=== PATIENT | male | born 1955 | race African-American/Black ===

== ENCOUNTER 2021-10-25 16:06 | Inpatient (IN) | payer MEDICARE, OTHER ==
[~2021-10-25] VITALS: Ht 167.6 cm; Wt 44.6 kg
--- NOTE | 2021-10-25 00:06 | NUR ---
RN ADMITTING NOTE PATIENT TRANSFERRED TO 306-1 MS, PATIENT ABLE TO MAKE NEEDS KNOWN, A/O X 3. PATIENT COMPLAINING OF ABDOMINAL PAIN, NO NAUSEA AT THIS TIME. PATIENT STABLE ON RA. PATIENT HAS UROSTOMY PRESENT STOMA PINK NO NECROSIS, DRAINING YELLOW SLIGHTLY CLOUDY URINE. PATIENT NPO STATUS, OK WITH ICE CHIPS. PATIENT HAS RAC 18 G, PATENT AND INTACT. SKIN ISSUES DOCUMENTED AND PHOTOS TAKEN. BELONGINGS INVENTORIED. PATIENT STATES THAT HE IS NOT ABLE TO AMBULATE D/T ABDOMINAL PAIN BUT USUALLY WALKS INDEPENDENTLY AT HOME. SAFETY MEASURES IN PLACE: BED LOCKED AND IN LOWEST POSITION, CALL LIGHT WITHIN REACH, SIDE RAILS UP. WILL MONITOR PATIENT CLOSELY. Addendum: 10/26/21 at 0520 by YASMIN RAZA RN WRONG TIME DOCUMENTED
--- NOTE | 2021-10-25 16:11 | NUR ---
BIB [facility]78 FROM HOME,C/O ABDOMINAL PAIN 06/26 SINCE 1000 THIS MORNING. IN ROOM AIR AND DENIES SOB. RESPIRATION REGULAR AND UNLABORED. DENIES NAUSEA/VOMITING. WILL CONTINUE TO MONITOR THE PATIENT.
--- NOTE | 2021-10-25 16:12 | NUR ---
SUPRAPUBIC STOMA WITH OSTOMY BAG NOTED; PATENT, INTACT, DRAINING YELLOW URINE.
[2021-10-25] MEDS ORDERED: MORPHINE SULFATE INJ 4 MG/ML DISP.SYRIN ONE (16:45)
[2021-10-25] MEDS ORDERED: ONDANSETRON HCL/PF 4 MG/2 ML VIAL ONE ×2 (16:45→18:44)
--- NOTE | 2021-10-25 16:57 | NUR ---
PT TAKEN TO CT VIA STEPHANY
[2021-10-25] MEDS ORDERED: IV NS 0.9% 1,000 ML BAG IV ONE (17:00)
[2021-10-25] MEDS ORDERED: MORPHINE SULFATE INJ 2 MG/ML DISP.SYRIN IV ONE (17:00)
[2021-10-25] MEDS ORDERED: ONDANSETRON HCL/PF 4 MG/2 ML VIAL IVP ONE (17:00)
--- NOTE | 2021-10-25 17:06 | NUR ---
THE PATIENT IS BACK FROM CT
[2021-10-25 17:12] LABS: HEMOGLOBIN 14.1 g/dL (13.5-17.5)
[2021-10-25 17:25] LABS: CALCIUM, SERUM 9.2 mg/dL (8.5-10.1); CREATININE 1.5 mg/dL (0.6-1.3); POTASSIUM 5.2 mmol/L (3.5-5.1)
[2021-10-25 17:30] LABS: ALBUMIN 3.6 g/dL (3.4-5.0); BILIRUBIN,DIRECT 0.1 mg/dL (0.0-0.2); BILIRUBIN,TOTAL 0.3 mg/dL (0.2-1.0)
[2021-10-25 17:31] LABS: BASOPHILS # (AUTO) 0.1 K/uL (0.0-0.2); BASOPHILS % (AUTO) 0.4 % (0.0-2.0); EOSINOPHILS % (AUTO) 0.2 % (0.0-6.0); HEMATOCRIT 44 % (39-51); LYMPHOCYTES # (AUTO) 0.5 K/uL (0.8-4.8); LYMPHOCYTES % (AUTO) 3.2 % (20.0-44.0); MEAN CORPUSCULAR HGB CONC 32 g/dl (31.0-36.0); MEAN CORPUSCULAR VOLUME 99 fL (80-96); MONOCYTES # (AUTO) 0.3 K/uL (0.1-1.30); MONOCYTES % (AUTO) 1.7 % (2.0-12.0); NEUTROPHILS # (AUTO) 16.3 K/uL (1.8-8.9); NEUTROPHILS % (AUTO) 94.5 % (43.0-81.0); PLATELET COUNT (AUTO) 438 K/uL (150-450); WHITE BLOOD COUNT (AUTO) 17.2 K/uL (4.3-11.0)
--- NOTE | 2021-10-25 17:39 | NUR ---
URINE COLLECTED AND SENT TO LAB
[2021-10-25 18:01] LABS: BILIRUBIN,URINE Negative (NEGATIVE); COLOR,URINE YELLOW (YELLOW); LEUKOCYTE ESTERASE ,URINE Large (NEGATIVE); NITRITE, URINE Negative (NEGATIVE); PROTEIN,URINE Negative (NEGATIVE); UGLUCOSE Negative (NEGATIVE); UROBILINOGEN,URINE 0.2 EU/dL (0.2)
[2021-10-25 18:03] LABS: RBC,URINE NONE SEEN /HPF (0-2)
[2021-10-25 18:04] LABS: BACTERIA,URINE 3+ /HPF (None Seen); SQUAMOUS EPITHELIAL CELL,UR Few /HPF (None Seen); WBC,URINE 51-80 /HPF (0-3)
[2021-10-25] MEDS ORDERED: CEFTRIAXONE 1GM BAG (ER ONLY) 1 GM/50 ML PIGGYBACK IV ONE (18:30)
[2021-10-25] MEDS ORDERED: CEFTRIAXONE 1GM BAG (ER ONLY) 50 ML IV ONE (18:44)
[2021-10-25] MEDS ORDERED: FAMOTIDINE/PF INJ 20 MG/2 ML VIAL IV ONE ×2 (18:44→19:00)
[2021-10-25] MEDS ORDERED: MAG HYDROX/AL HYDROX/SIMETH 30 ML UDC PO ONE (19:00)
[2021-10-25] MEDS ORDERED: LIDOCAINE VISCOUS 2% UD 15 ML UDC MM ONE (19:00)
[2021-10-25] MEDS ORDERED: ONDANSETRON HCL/PF - ER 4 MG/2 ML VIAL IV ONE (19:00)
[2021-10-25] MEDS ORDERED: IV NS 0.9% 500 ML BAG IV ONE (20:00)
[2021-10-25] MEDS ORDERED: METRONIDAZOLE 500MG/ NS 100ML 100 ML IV ONE (20:00)
--- NOTE | 2021-10-25 20:21 | NUR ---
COVID ANTIGEN COLLECTED AND SENT O LAB
[2021-10-25] MEDS ORDERED: MAGNESIUM HYDROXIDE 30 ML UDC PO PRN (21:30)
[2021-10-25] MEDS ORDERED: IV NS 0.9% 1,000 ML IV PRN (21:30)
[2021-10-25] MEDS ORDERED: MAG HYDROX/AL HYDROX/SIMETH 30 ML UDC PO PRN (21:30)
[2021-10-25] MEDS ORDERED: ZOLPIDEM TARTRATE 5 MG TABLET PO PRN (21:30)
[2021-10-25] MEDS ORDERED: ACETAMINOPHEN 325 MG TABLET PO PRN (21:30)
[2021-10-25] MEDS ORDERED: Z GUARD REMEDY 2 OZ OINT TP PRN (21:30)
[2021-10-25] MEDS ORDERED: ONDANSETRON HCL/PF 4 MG/2 ML VIAL IVP PRN (21:30)
[2021-10-25] MEDS ORDERED: GABA-532 PO (23:40)
[2021-10-25] MEDS ORDERED: HYDR-4303 PO (23:40)
[2021-10-25] MEDS ORDERED: ALBU2.5V38 IH (23:50)
[2021-10-25] MEDS ORDERED: CILO100T PO (23:50)
[2021-10-25] MEDS ORDERED: OMEP40CA21 PO (23:50)
[2021-10-25] MEDS ORDERED: METO-357 PO (23:50)
[2021-10-25] MEDS ORDERED: LOSA50TA39 PO (23:50)
[2021-10-26] VITALS (28 sets, daily range): BP systolic 76–119; BP diastolic 48–73
--- NOTE | 2021-10-26 00:06 | NUR ---
PT TRANSFERRED TO 3W 306 VIA ACLS PROTOCOL. ALL BELONGINGS WITH PT. NOTIFIED LOUISE DAUGHTER OF TRANSFER
--- NOTE | 2021-10-26 00:07 | NUR ---
RN ADMITTING NOTE PATIENT TRANSFERRED TO 306-1 MS, PATIENT ABLE TO MAKE NEEDS KNOWN, A/O X 3. PATIENT COMPLAINING OF ABDOMINAL PAIN, NO NAUSEA AT THIS TIME. PATIENT STABLE ON RA. PATIENT HAS UROSTOMY PRESENT STOMA PINK NO NECROSIS, DRAINING YELLOW SLIGHTLY CLOUDY URINE. PATIENT NPO STATUS, OK WITH ICE CHIPS. PATIENT HAS RAC 18 G, PATENT AND INTACT. SKIN ISSUES DOCUMENTED AND PHOTOS TAKEN. BELONGINGS INVENTORIED. PATIENT STATES THAT HE IS NOT ABLE TO AMBULATE D/T ABDOMINAL PAIN BUT USUALLY WALKS INDEPENDENTLY AT HOME. SAFETY MEASURES IN PLACE: BED LOCKED AND IN LOWEST POSITION, CALL LIGHT WITHIN REACH, SIDE RAILS UP. WILL MONITOR PATIENT CLOSELY.
[2021-10-26] MEDS: MORPHINE SULFATE INJ 2 MG/ML DISP.SYRIN IV PRN ×3 (00:40→11:13)
--- NOTE | 2021-10-26 00:40 | NUR ---
RN NOTE PATIENT GIVEN MORPHINE FOR ABDOMINAL PAIN, WILL CONTINUE TO MANAGE AND ASSESS PAIN
[2021-10-26 06:08] LABS: ALBUMIN 2.5 g/dL (3.4-5.0); BILIRUBIN,TOTAL 0.3 mg/dL (0.2-1.0); MAGNESIUM 1.7 mg/dL (1.8-2.4); PHOSPHORUS 6.4 mg/dL (2.5-4.9); TOTAL PROTEIN, SERUM 5.7 g/dL (6.4-8.2)
[2021-10-26 06:22] LABS: POTASSIUM 6.7 mmol/L (3.5-5.1)
[2021-10-26 06:41] LABS: BASOPHILS % (AUTO) 0.1 % (0.0-2.0); HEMATOCRIT 40 % (39-51); HEMOGLOBIN 12.9 g/dL (13.5-17.5); LYMPHOCYTES # (AUTO) 0.8 K/uL (0.8-4.8); LYMPHOCYTES % (AUTO) 3.5 % (20.0-44.0); MEAN CORPUSCULAR HGB CONC 32 g/dl (31.0-36.0); MEAN CORPUSCULAR VOLUME 100 fL (80-96); MONOCYTES # (AUTO) 1.1 K/uL (0.1-1.30); NEUTROPHILS # (AUTO) 19.7 K/uL (1.8-8.9); NEUTROPHILS % (AUTO) 91.4 % (43.0-81.0); PLATELET COUNT (AUTO) 326 K/uL (150-450); RED BLOOD CELL COUNT(AUTO) 3.98 MIL/uL (4.5-6.0); WHITE BLOOD COUNT (AUTO) 21.5 K/uL (4.3-11.0)
--- NOTE | 2021-10-26 06:45 | NUR ---
RN NOTE LAB REPORTED CRITICAL LAB OF POTASSIUM 6.7, SALVADOR STUDY MANAGER ORDERED KAYEXALATE 30 GM ONCE.
[2021-10-26] MEDS ORDERED: SODIUM POLYSTYRENE SULFONATE 15 G/60 ML BOTTLE PO ONE (07:00)
--- NOTE | 2021-10-26 07:12 | NUR ---
RN CLOSING NOTE PATIENT WAS JUST GIVEN MORPHINE FOR PAIN. PATIENT TOLERATES ROOM AIR, NO NAUSEA. ALL NEEDS MET AND ATTENDED. ALL ORDERS CARRIED OUT. WAITING FOR PHARMACY TO BRING UP KAYEXALATE. WILL ENDORSE PATIENT TO DAY SHIFT NURSE.
[2021-10-26] MEDS: PANTOPRAZOLE 40 MG VIAL IV SCH (09:34)
--- NOTE | 2021-10-26 09:52 | NUR ---
WOUND CARE CONSULT: PT PRESENTS WITH DRY WOUNDS TO LEFT FOOT, PRESENT ON ADMISSION. PT STATES CANNOT FEEL HIS LEFT FOOT. DR ETIENNE NOTIFIED OF DPM CONSULT REQUEST. RECOMMENDATIONS MADE FOR SKIN PROTECTION. DISCUSSED WITH NURSING STAFF. IN AGREEMENT WITH PLAN OF CARE. PT IS VERY THIN AND BONY.
[2021-10-26] MEDS ORDERED: Z GUARD REMEDY 2 OZ OINT TP PRN (10:00)
[2021-10-26] MEDS ORDERED: INSULIN REGULAR, HUMAN 100 UNIT/ML 10 ML VIAL IV ONE (12:30)
[2021-10-26] MEDS ORDERED: DEXTROSE 50%-WATER 50 ML DISP.SYRIN IVP ONE (12:30)
[2021-10-26] MEDS ORDERED: Calcium Gluconate 1GM/10ML 4.65 MEQ in IV D5W 50 ML IV ONE (13:00)
[2021-10-26] MEDS ORDERED: IV NS 0.9% 1,000 ML IV PRN (13:56)
[2021-10-26] MEDS ORDERED: NOREPINEPHRINE 8 MG in IV NS 0.9% 242 ML IV PRN (16:30)
[2021-10-26] MEDS ORDERED: SODIUM BICARBONATE SYR 50 MEQ/50 ML DISP.SYRIN IV ONE (16:30)
--- NOTE | 2021-10-26 16:35 | NUR ---
code blue team at bedside, code canceled, pt is responsive and answers simple questions, v/s taken and recorded.
--- NOTE | 2021-10-26 16:35 | NUR ---
Responded to CODE BLUE on rm. 313. Upon my arrival, patient was on the floor with vomit next to his head. ER md , Dr. Lion arrived to respond. He was awake and alert. Lethargic but answers simple questions appropriately. Pulses intact. Patient reportedly had an episode of vomiting and fell from the bed onto the floor. His initial oxygen saturation was in the 70s. His oropharynx was suctioned by ER MD. With C-spine immobilized, patient was transferred onto a backboard and then back onto the bed. He was then propped up. His oxygen saturation improved to around 94%. SBp improved to 110's. Transferred to ICU 257 on acls protocol. Stat CT head, neck and lumbar spine ordered. Dr. Beard made aware by 3W extension service specialist in charge.
--- NOTE | 2021-10-26 17:05 | NUR ---
RN NOTE Patient was found by assigned surveillance camera technician lying on the floor in response to bed alarm and called code blue. bleeding was noted on pulled out iv site on rac. patient was non responsive,weak pulse and breathing noted at initial assessment, but was responsive to mild pain stimulation on chest and was able to verbalize "he is ok". code blue was switched to rapid response. MD ordered CT scan lumbar, cervical, spine, head. Report given to CROSSBAND LAYER.
--- NOTE | 2021-10-26 17:09 | NUR ---
RN NOTES PT RECEIVED FROM 3W, A/Ox2, PT ABLE TO VERBALIZE NEEDS , ON NONREBREATHER MASK AT 15L , O2 SAT WNL, ST HR IN 130'S , SBP IN LOW 90'S , R UPPER ARM IV G 22 INSERTED , PT IS NPO AT THIS TIME, SR UP x3, CALL LIGHT WITHIN EASY REACH, BED LOCKED AND IN LOWEST POSITION, CONTINUE TO MONITOR .
[2021-10-26] MEDS ORDERED: PHENYLEPHRINE 50 MG in IV NS 0.9% 245 ML IV PRN (18:00)
[2021-10-26] MEDS: Sodium Bicarbonate 150 MEQ in IV D5W 1,000 ML IV SCH (18:00)
[2021-10-26] MEDS: CEFTRIAXONE 1 G in IV D5W 50 ML IV SCH (19:11)
--- NOTE | 2021-10-26 19:26 | NUR ---
RN NOTE SEE RAPID RESPONSE INTERVENTIONS FOR RAPID RESPONSE NOTES/DETAILS. Addendum: 10/26/21 at 1930 by WARNER MCKEON RN PATIENT WAS TRANSFERRED TO ICU FOR CLOSE CONTINUOUS MONITORING. GAVE REPORT TO FINAL INSPECTOR PAPER.
--- NOTE | 2021-10-26 20:00 | NUR ---
ICU NOTES Received patient awake alert oriented x3 and verbally responsive.ST 120's-130's per tele monitoring. VS stable.With O2 100% 15L NRB Mask saturation 100%.No acute respiratory distress noted.NPO with IVF D5W1L+Na HCO3 @ 150 ml/he infusing well.Urostomy tube to gravity drainage.Denies pain or any discomfort.Turned and repositioned to comfort.Continue monitoring.
[2021-10-26] MEDS: PHENYLEPHRINE 50 MG in IV NS 0.9% 245 ML IV PRN (21:31)
--- NOTE | 2021-10-26 21:31 | NUR ---
ICU NOTES Patient hypotensive 78/51 and remains tachy 127 Sean Synephrine gtt initiated per protocol and will tirate accordingly.PICC Line RN at bedside.NAD noted.
--- NOTE | 2021-10-26 21:45 | NUR ---
ICU NOTES PICC LINE inserted to EPIFANIO flushed with good blood return.Per Rory,PICC LINE RN OK to use.
[2021-10-26 23:43] LABS: CREATININE 4.1 mg/dL (0.6-1.3); POTASSIUM 5.2 mmol/L (3.5-5.1)
[2021-10-27] VITALS (98 sets, daily range): BP systolic 50–145; BP diastolic 38–116
[2021-10-27] MEDS: Sodium Bicarbonate 150 MEQ in IV D5W 1,000 ML IV SCH ×4 (01:50→23:21)
[2021-10-27] MEDS: MORPHINE SULFATE INJ 2 MG/ML DISP.SYRIN IV PRN (02:22)
[2021-10-27 05:04] LABS: HEMATOCRIT 27 % (39-51); HEMOGLOBIN 9.3 g/dL (13.5-17.5); LYMPHOCYTES # (AUTO) 0.4 K/uL (0.8-4.8); LYMPHOCYTES % (AUTO) 4.3 % (20.0-44.0); MEAN CORPUSCULAR HGB CONC 34 g/dl (31.0-36.0); MEAN CORPUSCULAR VOLUME 98 fL (80-96); MONOCYTES # (AUTO) 0.3 K/uL (0.1-1.30); NEUTROPHILS # (AUTO) 7.9 K/uL (1.8-8.9); NEUTROPHILS % (AUTO) 91.7 % (43.0-81.0); PLATELET COUNT (AUTO) 204 K/uL (150-450); RED BLOOD CELL COUNT(AUTO) 2.79 MIL/uL (4.5-6.0); WHITE BLOOD COUNT (AUTO) 8.7 K/uL (4.3-11.0)
--- NOTE | 2021-10-27 06:13 | NUR ---
ICU NOTES Patient urine output is only 50 ml in 11 hrs from 7pm -0600 am. Bladder scan done reading 156 ml.Patient has H/O Bladder CA with Urostomy.Remains Tachycardic 130's. EKG done reading ST 138.Notified Hawa Wright NP with order to continue IVF with Na Bicarb and Sean Synephrine gtt infusing at 1 mcg.Patient awake no complaints presented.Kept comfortable.
[2021-10-27 06:15] LABS: CALCIUM, SERUM 6.6 mg/dL (8.5-10.1); CREATININE 4.5 mg/dL (0.6-1.3); PHOSPHORUS 7.4 mg/dL (2.5-4.9); POTASSIUM 5.2 mmol/L (3.5-5.1)
--- NOTE | 2021-10-27 07:30 | NUR ---
RN NOTES PT FOUND SUPINE SLEEPING DISPLAYING NO S/S OF DISTRESS, FLACC = 0 AND BREATHING IS EVEN AND UNLABORED ON 15 L O2 NRB. R UA PICC PATIENT AND INTACT. UROSTOMY, COLLECTION BAG INTACT WITH SHERIDAN CATH BAG BELOW PATIENT DRAINING BY GRAVITY. VSS, RN WILL MONITOR AND TREAT THROUGHOUT SHIFT. SAFETY MEASURES IN PLACE, BED LOCKED AND IN LOWEST POSITION, SIDE RAILS UPX2, CALL LIGHT WITHIN REACH, BED ALARM ARMED.
[2021-10-27] MEDS: PANTOPRAZOLE 40 MG VIAL IV SCH (09:06)
[2021-10-27 09:07] LABS: BAND % (MANUAL) 28 % (0.0-5.0); LYMPHOCYTES % (MANUAL) 7 % (16-48); METAMYELOCYTES % 1 % (0-0); MONOCYTES % (MANUAL) 5 % (0-11.0); MYELOCYTES % 2 % (0-0); NEUTROPHILS % (MANUAL) 57 (42-76)
[2021-10-27] MEDS: PHENYLEPHRINE 50 MG in IV NS 0.9% 245 ML IV PRN (12:42)
--- NOTE | 2021-10-27 19:18 | NUR ---
RN NOTES PT FOUND SEMI FOWLERS DISPLAYING NO S/S OF DISTRESS, FLACC = 0 AND BREATHING IS EVEN AND UNLABORED ON 15 L O2 NRB. R UA PICC PATIENT AND INTACT. UROSTOMY, COLLECTION BAG INTACT WITH SHERIDAN CATH BAG BELOW PATIENT DRAINING BY GRAVITY. NO URINE OUTPUT, UROLOGIST NOTIFIED. SBAR AND REPORT GIVEN TO OUTSIDE PRODUCTION INSPECTOR RN. SAFETY MEASURES IN PLACE, BED LOCKED AND IN LOWEST POSITION, SIDE RAILS UPX2, CALL LIGHT WITHIN REACH, BED ALARM ARMED. PT ENDORSED IN STABLE CONDITION FOR GALINA. ALL QUESTIONS ANSWERED.
[2021-10-27] MEDS: CEFTRIAXONE 1 G in IV D5W 50 ML IV SCH (19:39)
--- NOTE | 2021-10-27 20:00 | NUR ---
ICU NOTES Received patient awake alert oriented x2 follows simple commands.Respiration even and unlabored with O2 15 L NRB mask saturation 100%.ST 120's.Continue on Sean Synephrine gtt at 1.2 mcg via EPIFANIO PICC LINE.Site intact.IVF D5W1L+Na HCO3 150meq infusing at 150 ml/hr.NPO status.Urostomy to drainage bag.No urine output noted.Denies pain or any discomfort.Continue to monitor.
[2021-10-27] MEDS ORDERED: MEROPENEM 500 MG in IV NS 0.9% 50 ML IV ONE (20:30)
--- NOTE | 2021-10-27 20:30 | NUR ---
ICU NOTES here at bedside no procedure done.Incarcerated right inguinal hernia resolved by itself. Portable CXR done to check placement of NGT. Addendum: 10/27/21 at 223 by JONATAN SHEPHERD RN 2229 HERE and PCXR DONE.
[2021-10-27] MEDS ORDERED: MEROPENEM 500 MG VIAL IV ONE (20:54)
--- NOTE | 2021-10-27 21:00 | NUR ---
ICU NOTES Dr.Krikor Dutton in to evaluate patient.
--- NOTE | 2021-10-27 22:00 | NUR ---
ICU NOTES NGT FR#14 inserted by BONNIE GRAHAM to left nares.Placement verified. Addendum: 10/27/21 at 2324 by JONATAN SHEPHERD RN ICU NOTES Please note: Correction it was who inserted the NGT.
--- NOTE | 2021-10-27 23:23 | NUR ---
ICU NOTES Radiology called regarding NGT placement it is in the right bronchus.NGT removed by ED,CRN.
[2021-10-28] VITALS (72 sets, daily range): BP systolic 47–156; BP diastolic 18–88
[2021-10-28 00:19] LABS: ABG BASE EXCESS 5.6 mmol/L; ABG OXYGEN SATURATION 95.3 % (92.0-98.5); ABG PH 7.384 (7.350-7.450); ABG PO2 80.3 mmHg (75.0-100.0); AaDO2 578.7 mmHg; COHb 0.2 % (0.5-1.5); MetHb 0.3 % (0.0-1.5); O2Hb 94.8 % (94.0-97.0); SITE, ABG Right Radial; VENT MODE, BG NRB
[2021-10-28] MEDS ORDERED: Calcium Gluconate 0.465 MEQ/ML VIAL IV ONE (00:30)
--- NOTE | 2021-10-28 00:31 | NUR ---
STAT ABG AND EKG DONE. RN NOTIFIED WITH THE RESULT.
[2021-10-28] MEDS ORDERED: Calcium Gluconate 1GM/10ML 4.65 MEQ in IV NS 0.9% 50 ML IV ONE (01:00)
[2021-10-28] MEDS ORDERED: Calcium Gluconate 1GM/10ML 4.65 MEQ in IV D5W 50 ML IV ONE (01:00)
--- NOTE | 2021-10-28 01:05 | NUR ---
ICU NOTES Patient had PSVT 179 highest.FORM COVERER,KEH notified with orders.EKG and ABG done .Results relayed to FORM COVERER,KEH with orders and carried out.Calcium Gluconate 1 gm given IVPB AT 120 ml/hr.Patient in no acute distress.
--- NOTE | 2021-10-28 02:30 | NUR ---
ICU NOTES Patient awake and bed bath rendered and complete linens changed.Noted patient bubbling orally bile colored output.HOB elevated and turned to his side.Secretions suctioned. Called Charge Nurse,ED for NGT.NGT Fr# 16 inserted to Left nares,Placement verified by auscultation and aspiration.NGT to low intermittent suction drained 500 ml bile colored output right away.
--- NOTE | 2021-10-28 02:45 | NUR ---
ICU NOTE Patient become obtunded and with agonal breathing desaturating to 70's-low 80's.Hawa RODRIGUEZ NP notified and came to evaluate patient with order for intubation.Called ER MD to intubate.
--- NOTE | 2021-10-28 03:00 | NUR ---
ICU NOTES Blood sugar checked 155.Temp 97.9 axillary.
[2021-10-28] MEDS ORDERED: VASOPRESSIN INJ 20 UNIT/ML VIAL ONE (03:20)
[2021-10-28] MEDS: VASOPRESSIN INJ 40 UNIT in IV NS 0.9% 38 ML IV PRN ×2 (03:26→10:24)
[2021-10-28] MEDS ORDERED: PROPOFOL 100 ML IV PRN (03:30)
[2021-10-28] MEDS: PHENYLEPHRINE 50 MG in IV NS 0.9% 245 ML IV PRN ×3 (03:39→16:14)
[2021-10-28] MEDS ORDERED: NOREPINEPHRINE 4 MG/4 ML AMPUL IV ONE (03:53)
--- NOTE | 2021-10-28 03:55 | NUR ---
@[address] BY [address] EARLY. 7.0 ETT SECURED AT 25CM LIP LINE. BILAT CHEST RISE, COLOR CHANGED ON CO2 DETECTOR. PT PLACED ON ESPRIT VENT, AC 16, 450, 100%. SX'D LARGE AMT OF THIN GREEN SECRETIONS. VENT ALARMS SET AND AUDIBLE. AMBU BAG AT BEDSIDE.
[2021-10-28] MEDS ORDERED: NOREPINEPHRINE 32 MG in IV NS 0.9% 218 ML IV PRN (04:00)
--- NOTE | 2021-10-28 04:00 | NUR ---
ICU NOTES 0320 Charge Nurse ED called patient suzy BUCKNER for Code status.Wants full code. 0326 Patient max out on Sean Synephrine BP remains low and tachy 115 .2nd pressor started Vasopressin at 0.02 units/hr and will titrate accordingly.ER MD here with orders. 0328 Patient pre medicated with touch of EPI,ETOMIDATE 20 MG IV and Succinylcholine 100 mg.IV 0330 Patient intubated orally by ER MD Dasia SUE.ET 7.0.25 LIP LINE. Followed by portable CXR. 0400 Patient BP remains low 3rd pressor Levphed gtt 0.1 mcg started and will titrate accordingly. Continue to monitor closely.
[2021-10-28 04:43] LABS: ABG BASE EXCESS 4.6 mmol/L; ABG OXYGEN SATURATION 86.8 % (92.0-98.5); ABG PCO2 78.5 mmHg (35.0-45.0); ABG PH 7.242 (7.350-7.450); ABG PO2 60.7 mmHg (75.0-100.0); AaDO2 573.8 mmHg; COHb 0.3 % (0.5-1.5); O2Hb 86.5 % (94.0-97.0); SITE, ABG Right Radial
--- NOTE | 2021-10-28 04:44 | NUR ---
ABG DONE RN NOTIFIED
--- NOTE | 2021-10-28 05:00 | NUR ---
ICU NOTES ABG'S DONE.Results called to Hawa RODRIGUEZ with ordered received.Vent settings adjusted by LEONIDAS QUEEN. See flow sheet.Patient remains sedated in no acute distress.
--- NOTE | 2021-10-28 05:04 | NUR ---
RATE CHANGED TO 20 AND VT TO 500. PER TOWEL STRETCHER SALVADOR. RN NOTIFIED.
[2021-10-28 05:08] LABS: EOSINOPHILS % (AUTO) 0.1 % (0.0-6.0); HEMATOCRIT 21 % (39-51); HEMOGLOBIN 7.3 g/dL (13.5-17.5); LYMPHOCYTES # (AUTO) 0.3 K/uL (0.8-4.8); LYMPHOCYTES % (AUTO) 3.7 % (20.0-44.0); MEAN CORPUSCULAR HGB CONC 35 g/dl (31.0-36.0); MEAN CORPUSCULAR VOLUME 97 fL (80-96); MONOCYTES # (AUTO) 0.3 K/uL (0.1-1.30); MONOCYTES % (AUTO) 4.1 % (2.0-12.0); NEUTROPHILS # (AUTO) 6.4 K/uL (1.8-8.9); NEUTROPHILS % (AUTO) 92.1 % (43.0-81.0); PLATELET COUNT (AUTO) 146 K/uL (150-450); RED BLOOD CELL COUNT(AUTO) 2.16 MIL/uL (4.5-6.0); WHITE BLOOD COUNT (AUTO) 6.9 K/uL (4.3-11.0)
[2021-10-28 05:28] LABS: CREATININE 5.7 mg/dL (0.6-1.3); MAGNESIUM 1.8 mg/dL (1.8-2.4)
[2021-10-28 05:30] LABS: CALCIUM, SERUM 5.9 mg/dL (8.5-10.1); PHOSPHORUS 9.3 mg/dL (2.5-4.9)
[2021-10-28 06:19] LABS: BAND % (MANUAL) 23 % (0.0-5.0); LYMPHOCYTES % (MANUAL) 4 % (16-48); METAMYELOCYTES % 1 % (0-0); MONOCYTES % (MANUAL) 5 % (0-11.0); NEUTROPHILS % (MANUAL) 66 (42-76); REACTIVE LYMPHOCYTES 1 % (0-0)
[2021-10-28] MEDS: Sodium Bicarbonate 150 MEQ in IV D5W 1,000 ML IV SCH ×2 (06:49→15:55)
--- NOTE | 2021-10-28 07:10 | NUR ---
ICU NOTES Patient remains sedated.Still ST per monitor on 3 pressors.NGT in placed drained total of 600ml bile colored.No urine output all throughout the night.No BM noted.Tolerating vent settings.Patient son called and updated patient status. Son SITA left his cell NO# [phone] and his sister Joann cell NO #[phone].Report given to BRIELLE for continuity of care.
--- NOTE | 2021-10-28 07:15 | NUR ---
RN NOTES PT FOUND SEMI FOWLERS DISPLAYING NO S/S OF ACUTE DISTRESS, FLACC = 0 AND BILATERAL RISE AND FALL OF THE CHEST OBSERVED. INTERMITTENT SUCTIONING OCCURRING. R UA PICC IS PATIENT AND INTACT. UROSTOMY BAG BELOW PATIENT DRAINING BY GRAVITY. VSS, BP MAINTAINED BY 3 PRESSORS, RN WILL MONITOR AND TREAT THROUGHOUT SHIFT. SAFETY MEASURES IN PLACE, BED LOCKED AND IN LOWEST POSITION, SIDE RAILS UPX2, CALL LIGHT WITHIN REACH, PT INSTRUCTED TO CALL FOR ASSISTANCE.
[2021-10-28 08:16] LABS: ABG OXYGEN SATURATION 92.1 % (92.0-98.5); ABG PCO2 55.9 mmHg (35.0-45.0); ABG PH 7.364 (7.350-7.450); ABG PO2 72.4 mmHg (75.0-100.0); AaDO2 584.7 mmHg; COHb 0.3 % (0.5-1.5); MetHb 0.3 % (0.0-1.5); O2Hb 91.5 % (94.0-97.0); SITE, ABG Right Radial
[2021-10-28] MEDS: PANTOPRAZOLE 40 MG VIAL IV SCH (08:45)
[2021-10-28] MEDS ORDERED: MEROPENEM 500 MG in IV NS 0.9% 50 ML IV SCH (09:00)
[2021-10-28] MEDS ORDERED: SUCCINYLCHOLINE CHLORIDE 20 MG/ML VIAL IV ONE (09:54)
[2021-10-28] MEDS ORDERED: ETOMIDATE 2 MG/ML VIAL IV ONE (09:54)
[2021-10-28] MEDS ORDERED: LORAZEPAM INJ 2 MG/ML VIAL IV PRN (12:00)
[2021-10-28] MEDS ORDERED: VANCOMYCIN 0.75 GM in IV D5W 250 ML IV ONE (13:00)
[2021-10-28] MEDS ORDERED: EPINEPHRINE (1:10,000) SYRINGE 1 MG/10 ML DISP.SYRIN IVP ONE ×3 (16:15→19:48)
[2021-10-28] MEDS ORDERED: SODIUM BICARBONATE SYR 50 MEQ/50 ML DISP.SYRIN IV ONE ×2 (16:15→19:01)
--- NOTE | 2021-10-28 17:46 | NUR ---
RT CODE BLUE CALLED, CPR INITIATED IMMEDIATELY. ER DOCTOR CALLED TIME OF .
--- NOTE | 2021-10-28 18:06 | NUR ---
CALLED [facility] REFERRAL ID: [id number]
--- NOTE | 2021-10-28 18:27 | NUR ---
[facility] RELEASED THE PT, NO ORGAN DONATION
[2021-10-28] MEDS ORDERED: CALCIUM CHLORIDE 1,000 MG/10 ML DISP.SYRIN IV ONE (19:01)
[2021-10-28] MEDS ORDERED: Sodium Bicarbonate 50 MEQ/50 ML VIAL IV ONE (19:48)
== END 2021-10-28 19:49 | DRG 871 ==
LOC: ER 16:32 → TELE 22:27 → MED 10-26 02:24 → ICU 10-26 17:05
PROVIDERS: ADMIT Nurse Practitioner Acute Care; ATTEND Student in an Organized Health Care Education/Training Program
PROC: 02HV33Z Insertion of Infusion Device into Superior Vena Cava, Percutaneous Approach (ICD-10-PCS; 2021-10-26)
PROC: B548ZZA Ultrasonography of Superior Vena Cava, Guidance (ICD-10-PCS; 2021-10-26)
PROC: 5A1935Z Respiratory Ventilation, Less than 24 Consecutive Hours (ICD-10-PCS; principal; 2021-10-28)
PROC: 0BH17EZ Insertion of Endotracheal Airway into Trachea, Via Natural or Artificial Opening (ICD-10-PCS; 2021-10-28)
PROC: 5A2204Z Restoration of Cardiac Rhythm, Single (ICD-10-PCS; 2021-10-28)
DX: A41.9 Sepsis, unspecified organism (principal); N17.0 Acute kidney failure with tubular necrosis; J69.0 Pneumonitis due to inhalation of food and vomit; G92.8 Other toxic encephalopathy; J96.01 Acute respiratory failure with hypoxia; R65.21 Severe sepsis with septic shock; N39.0 Urinary tract infection, site not specified; N13.30 Unspecified hydronephrosis; K40.30 Unilateral inguinal hernia, with obstruction, without gangrene, not specified as recurrent; R64 Cachexia; Z68.1 Body mass index [BMI] 19.9 or less, adult; E87.1 Hypo-osmolality and hyponatremia; J98.11 Atelectasis; R18.8 Other ascites; M84.48XA Pathological fracture, other site, initial encounter for fracture; G62.9 Polyneuropathy, unspecified; K82.8 Other specified diseases of gallbladder; Z20.822 Contact with and (suspected) exposure to COVID-19; I10 Essential (primary) hypertension; Z85.51 Personal history of malignant neoplasm of bladder; Z93.6 Other artificial openings of urinary tract status; B96.89 Other specified bacterial agents as the cause of diseases classified elsewhere; Z90.6 Acquired absence of other parts of urinary tract; R33.9 Retention of urine, unspecified; M20.42 Other hammer toe(s) (acquired), left foot; M20.41 Other hammer toe(s) (acquired), right foot; D64.9 Anemia, unspecified; N13.9 Obstructive and reflux uropathy, unspecified; E83.42 Hypomagnesemia; E87.5 Hyperkalemia; J44.9 Chronic obstructive pulmonary disease, unspecified; I46.9 Cardiac arrest, cause unspecified; M41.9 Scoliosis, unspecified
CPT/HCPCS: 31720; 36415; 36600; 70450-TC; 71045-TC; 72125-TC; 72131-TC; 76770-TC; 80048-TC; 80053-TC; 80076-TC; 81001; 82140-TC; 82803-TC; 82962-TC; 83605-TC; 83690-TC; 83735-TC; 84100-TC; 84484-TC; 85025-TC; 85730-TC; 86850-TC; 87040-TC; 87081-TC; 87086-TC; 94002-TC; 95819-TC; C9113; C9803; G0378; J0171; J0330; J0610; J0696; J1815; J2060; J2185; J2270; J2370; J2405; J3370; J3490; J7030; J7050; J7060; J7070